=== PATIENT | male | born 1975 | race Caucasian/White ===

== ENCOUNTER 2017-08-08 10:10 | Emergency (ER) | payer BC, OTHER ==
[~2017-08-08] VITALS: Ht 185.4 cm; Wt 97.5 kg
[~2017-08-08 10:10] MED LIST: MESA1.2T PO; MULT-506 PO
[2017-08-08 10:12] VITALS: TEMP 36.3; Ht 185.4 cm; Wt 97.5 kg
[2017-08-08 10:47] LABS: HEMATOCRIT 46.9 % (42-52); HEMOGLOBIN 16.4 g/dL (14.0-18.0); MEAN CELL VOLUME 86.2 fL (80-100); MEAN CORPUSCULAR HEMOGLOBIN 30.1 pg (25-34); MEAN PLATELET VOLUME 10.5 fL (7.4-10.4); PLATELET COUNT 191 K/uL (130-400); RED CELL DISTRIBUTION WIDTH CV 12.1 % (11.5-14.5); RED CELL DISTRIBUTION WIDTH SD 38.4 fL (36.4-46.3)
[2017-08-08 11:00] LABS: PTT PATIENT 27.1 SECONDS (21.0-31.0)
--- NOTE | 2017-08-08 11:05 | DIAGNOSTIC IMAGING REPORT ---
CHEST ONE VIEW PORTABLE HISTORY: Atypical chest pain COMPARISON: Chest 03/16/2016. FINDINGS: The lungs are clear. Cardiac silhouette is normal in size. No pleural effusions. No pneumothorax. Scoliosis is again noted. IMPRESSION: No significant change compared to the prior study. No acute process. Electronically signed by: Juan Hess M.D. 08/08/2017 11:04 AM Dictated Date/Time: 08/08/2017 10:58 AM
[2017-08-08 11:09] LABS: CALCIUM 9.3 mg/dl (8.5-10.1); CKMB 2.5 ng/ml (0.5-3.6); CREATININE 1.26 mg/dl (0.60-1.40); POTASSIUM 3.7 mmol/L (3.5-5.1); TOTAL PROTEIN 7.9 gm/dl (6.4-8.2)
--- NOTE | 2017-08-08 11:18 | EMERGENCY ROOM VISIT NOTE ---
History Report prepared by Suresh: Alfonzo Ferreira Under the Supervision of: Dr. Vickey Abraham M.D. First contact with patient: 10:39 Chief Complaint: CHEST PAIN Stated Complaint: CHEST PAIN Nursing Triage Summary: Patient presents with left sided chest and upper arm pain that began a month ago He states that the symptoms are intermittent Pain is minimal today He called his PCP for an appointment and was referred to the ED States nothing makes the symptoms better or worse Hx/ Crohn's disease History of Present Illness The patient is a 42 year old male who presents to the Emergency Room with complaints of intermittent chest pain for the past month. The patient states that he is currently in no discomfort. He reports that the pain comes on after having two large meals in a day or when his bowels are backed up. The patient additionally notes that he had some left arm discomfort this morning, and he states that he rode 7 miles on a bike this morning, though he has not done anything else strenuous recently. The patient has a history of scoliosis which led to tingling in his left arm, he has borderline hypertension, and he has Crohn's which is under control and is at its baseline. His last bowel movement was this morning and was more hard than usual. The patient states that he has no history of shoulder injuries, family history of heart attacks at a young age , and history of DVT and PEs. Source of History: patient Onset: a month ago Position: chest Timing: intermittent Modifying Factors (Worsening): other (having two large meals in a day or when his bowels are backed up) Note: Associated symptoms: left arm discomfort Review of Systems See HPI for pertinent positives and negatives. A total of ten systems were reviewed and were otherwise negative. Past Medical & Surgical Medical Problems: (1) Crohn's disease Family History Patient reports no known family medical history. Social History Smoking Status: Never Smoker Marital Status: Occupation Status: employed Current/Historical Medications Scheduled Mesalamine (Lialda), 2 TAB PO QAM Multivitamin (Multivitamin), 1 TAB PO QAM Scheduled PRN Famotidine (Pepcid), 20 MG PO BID PRN for GI Upset Allergies Coded Allergies: POLLEN (Unverified Allergy, Mild, , 08/08/17) Physical Exam Vital Signs Date Time Temp Pulse Resp B/P (MAP) Pulse Ox O2 Delivery O2 Flow Rate FiO2 08/08/17 13:49 66 16 144/90 96 08/08/17 12:06 61 16 141/78 96 Room Air 08/08/17 11:33 98 Room Air 08/08/17 11:32 98 Room Air 08/08/17 10:28 70 08/08/17 10:22 Room Air 08/08/17 10:20 Room Air 08/08/17 10:12 36.3 72 20 176/95 99 Room Air Physical Exam GENERAL: Awake, alert, well-appearing, in no distress HENT: Normocephalic, atraumatic. Oropharynx unremarkable. EYES: Normal conjunctiva. Sclera non-icteric. NECK: Supple. No nuchal rigidity. FROM. No JVD. RESPIRATORY: Clear to auscultation. CARDIAC: Regular rate, normal rhythm. Extremities warm and well perfused. Pulses equal. ABDOMEN: Soft, non-distended. No tenderness to palpation. No rebound or guarding. No masses. RECTAL: Deferred. MUSCULOSKELETAL: Chest examination reveals no tenderness. The back is symmetrical on inspection without obvious abnormality. There is no CVA tenderness to palpation. No joint edema. LOWER EXTREMITIES: Calves are equal size bilaterally and non-tender. No edema. No discoloration. NEURO: Normal sensorium. No sensory or motor deficits noted. SKIN: No rash or jaundice noted. Medical Decision & Procedures ER Provider Diagnostic Interpretation: Radiology results as stated below per my review and radiologist interpretation: CHEST ONE VIEW PORTABLE HISTORY: Atypical chest pain COMPARISON: Chest 03/16/2016. FINDINGS: The lungs are clear. Cardiac silhouette is normal in size. No pleural effusions. No pneumothorax. Scoliosis is again noted. IMPRESSION: No significant change compared to the prior study. No acute process. Electronically signed by: Juan Hess M.D. 08/08/2017 11:04 AM Dictated Date/Time: 08/08/2017 10:58 AM Laboratory Results 08/08/17 10:30 08/08/17 10:30 Test 08/08/17 10:30 08/08/17 12:38 Red Blood Count 5.44 M/uL (4.7-6.1) Mean Corpuscular Volume 86.2 fL (80-100) Mean Corpuscular Hemoglobin 30.1 pg (25-34) Mean Corpuscular Hemoglobin Concent 35.0 g/dl (32-36) RDW Standard Deviation 38.4 fL (36.4-46.3) RDW Coefficient of Variation 12.1 % (11.5-14.5) Mean Platelet Volume 10.5 fL (7.4-10.4) Prothrombin Time 10.0 SECONDS (9.0-12.0) Prothromb Time International Ratio 1.0 (0.9-1.1) Activated Partial Thromboplast Time 27.1 SECONDS (21.0-31.0) Partial Thromboplastin Ratio 1.0 Anion Gap 8.0 mmol/L (3-11) Est Creatinine Clear Calc Drug Dose 92.9 ml/min Estimated GFR () 80.4 Estimated GFR (Non- 69.4 BUN/Creatinine Ratio 9.0 (10-20) Calcium Level 9.3 mg/dl (8.5-10.1) Total Bilirubin 0.5 mg/dl (0.2-1) Aspartate Amino Transf (AST/SGOT) 28 U/L (15-37) Alanine Aminotransferase (ALT/SGPT) 52 U/L (12-78) Alkaline Phosphatase 93 U/L (45-117) Total Creatine Kinase 224 U/L (39-308) Creatine Kinase MB 2.5 ng/ml (0.5-3.6) Creatine Kinase MB Ratio 1.1 (0-3.0) Total Protein 7.9 gm/dl (6.4-8.2) Albumin 4.0 gm/dl (3.4-5.0) Globulin 3.9 gm/dl (2.5-4.0) Albumin/Globulin Ratio 1.0 (0.9-2) Chemistry Specimen Hemolysis Bedside Troponin I < 0.030 ng/ml (0-0.045) Laboratory results reviewed by me ECG Per My Interpretation Indication: chest pain Rate (beats per minute): 63 Rhythm: normal sinus Findings: no acute ischemic change, other (normal axis) ED Course 1039: The patient was evaluated in room C4. A complete history and physical exam was performed. 1302: I reevaluated the patient. Discussed results and discharge instructions: he verbalized understanding and agreement. The patient is ready for discharge. Medical Decision I reviewed the patient's past medical history, medications, and the nursing notes as described above. Differential diagnosis: Etiologies such as cardiac ischemia, aortic dissection, pulmonary embolism, pneumonia, pneumothorax, musculoskeletal, infections, pericarditis, myocarditis , esophageal rupture, gastrointestinal, as well as others were entertained. The patient is a 42 y/o gentleman with a pmhx of Crohn's disease who presents to the emergency department with intermittent CP for the past per HPI. On arrival the patient is asymptomatic, AFVSS. EKG unremarkable. Initial troponin negative. Labs otherwise unremarkable including WBC wnl. CXR negative. Delta 2 hour troponin again negative. Heart score 1, low risk, acs unlikely. PERC negative PE not likely. Not positional, pericarditis not likely. No tearing pain and equal pulses, dissection not likely. Given patient's association of sx with eating likely related to reflux or slowed motility. Findings and plan for follow-up reviewed with patient. Patient agreeable and d/c'd per discharge instructions. Medication Reconcilliation Current Medication List: was personally reviewed by me Blood Pressure Screening Patient's blood pressure: Elevated blood pressure Blood pressure disposition: Referred to PCP Impression Primary Impression: Substernal precordial chest pain Scribe Attestation The scribe's documentation has been prepared under my direction and personally reviewed by me in its entirety. I confirm that the note above accurately reflects all work, treatment, procedures, and medical decision making performed by me. Departure Information Dispostion Home / Self-Care Prescriptions Famotidine (PEPCID) 20 Mg Tab 20 MG PO BID Y for GI Upset for 7 Days, #14 TAB Prov: Vickey Abraham M.D. 08/08/17 Referrals Raymundo Cuellar III, M.D. (PCP) Patient Instructions ED Chest Pain Atypical Unkn Cause, ED GERD, ED Gastritis, My [facility] Additional Instructions Please follow up with your primary care physician in the next 1-3 days for re- evaluation. Your symptoms are possibly related to reflux/gastritis. Otherwise, your exam, EKG, chest xray, and lab results did not show signs of an emergent condition at this time. Pepcid and Tums as needed for GI upset/acid reduction. Drink plenty of fluids to ensure hydration. Return to the emergency department for worsening symptoms as described in the accompanying instructions.
[2017-08-08 11:33] VITALS: O2SAT 98
[2017-08-08] MEDS ORDERED: FAMO20TA9 PO (13:03)
[2017-08-08 13:49] VITALS: BP 144/90; PULSE 66; O2SAT 96
== END 2017-08-08 13:45 | disposition home or self-care (01) ==
LOC: C.EDB 10:11 → C.EDC 13:45
DX: R07.2 Precordial pain (principal); K50.90 Crohn's disease, unspecified, without complications